=== PATIENT | male | born 1990 | race Caucasian/White ===

== ENCOUNTER 2017-04-07 22:36 | Emergency (ER) | payer OTHER ==
[~2017-04-07] VITALS: Ht 177.8 cm; Wt 99.8 kg
--- NOTE | 2017-04-07 23:00 | NUR ---
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 RR EVEN AND UNLABORED. NO SOB NOTED. NAD NOTED. NO NVD AT THIS TIME. PT NOT DIAPHORETIC. PT PLACED ON MONITOR. DR RAUSCH AT BEDSIDE FOR EVAL.
--- NOTE | 2017-04-07 23:43 | NUR ---
LAB AT BEDSIDE FOR BLOOD DRAW.
[2017-04-08 00:28] LABS: INR 1.02 (0.87-1.13); PROTHROMBIN TIME 10.6 SECS (9.5-12.7)
[2017-04-08 00:29] LABS: BASOPHILS % (AUTO) 0.2 % (0.0-2.0); EOSINOPHILS % (AUTO) 0.1 % (0.0-6.0); HEMATOCRIT 52 % (39-51); HEMOGLOBIN 17.3 g/dL (13.5-17.5); LYMPHOCYTES # (AUTO) 1.4 /CMM (0.8-4.8); LYMPHOCYTES % (AUTO) 13.1 % (20.0-44.0); MEAN CORPUSCULAR HEMOGLOBIN 30 PG (26.0-33.0); MEAN CORPUSCULAR HGB CONC 33 g/dl (31.0-36.0); MEAN CORPUSCULAR VOLUME 90 fL (80-96); MONOCYTES # (AUTO) 0.6 /CMM (0.1-1.30); MONOCYTES % (AUTO) 5.1 % (2.0-12.0); NEUTROPHILS % (AUTO) 81.5 % (43.0-81.0); RDW COEFFICIENT OF VARIATION 12.3 (11.5-15.0); RED BLOOD CELL COUNT(AUTO) 5.81 MIL/uL (4.5-6.0)
[2017-04-08 00:31] LABS: PLATELET COUNT (AUTO) 35 /CMM (150-450)
--- NOTE | 2017-04-08 00:49 | NUR ---
Call from [facility], spoke with [facility]. #[phone]
[2017-04-08 01:03] LABS: APPEARANCE,URINE CLEAR (CLEAR); BILIRUBIN,URINE NEGATIVE (NEGATIVE); BLOOD, URINE NEGATIVE Ery/uL (NEGATIVE); COLOR,URINE YELLOW (YELLOW); KETONES,URINE NEGATIVE (NEGATIVE); LEUKOCYTE ESTERASE ,URINE NEGATIVE (NEGATIVE); NITRITE, URINE NEGATIVE (NEGATIVE); PROTEIN,URINE NEGATIVE (NEGATIVE); UGLUCOSE NEGATIVE (NEGATIVE); UROBILINOGEN,URINE 0.2 EU/dL (0.2)
--- NOTE | 2017-04-08 01:41 | NUR ---
ART AT BEDSIDE FOR PYSCH EVAL.
--- NOTE | 2017-04-08 02:00 | NUR ---
PER ART, OKAY TO DC
--- NOTE | 2017-04-08 02:12 | NUR ---
Patient discharged to home in stable condition. Written and verbal after care instructions given. Patient verbalizes understanding of instruction. ambulatory with a steady gait
[2017-04-08 02:13] VITALS: BP 142/70
[2017-04-08 02:19] LABS: LYMPHOCYTES % (MANUAL) 14 % (16-48); MONOCYTES % (MANUAL) 9 % (0-11.0); NEUTROPHILS % (MANUAL) 77 (42-76)
== END 2017-04-08 02:14 | disposition home or self-care (01) ==
LOC: ER 22:38
DX: F11.10 Opioid abuse, uncomplicated (principal); R79.1 Abnormal coagulation profile; F32.9 Major depressive disorder, single episode, unspecified
CPT/HCPCS: 36415 ×2; 80305; 81001; 85025; 85610; 93005; 99285; G0480; Q0162; 81000-TC